=== PATIENT | female | born 1995 | race Caucasian/White ===

== ENCOUNTER 2016-04-23 14:27 | Inpatient (IN) | payer OTHER ==
[~2016-04-23 14:27] MED LIST: AUGMENTIN 500-1 EAC2 PO; ELIQUIS5 M1 PO; HYDROCODON-ACE1 EA16 PO; IMURAN50 M1 PO; JANUVIA100 M1 PO; NOVOLOG100 UNITS/; PREDNISONE10 M1 PO; TRESIBA FL100 UNIT/1 SC
[2016-04-23] MEDS ORDERED: MULTIVITAMINS1 EAC6 PO (14:51)
[2016-04-23 17:02] LABS: BASO % 0.1 % (0-2); EOS % 0.7 % (0-7); EOSINOPHIL ABSOLUTE COUNT 0.1 tho/cmm (0.0-0.7); HCT-HEMATOCRIT 31.8 % (34.0-49.0); HGB-HEMOGLOBIN 10.6 gm/dl (12.0-15.5); IMMATURE GRANULOCYTES ABSOLUTE 0.02 tho/cmm (0-0.03); IMMATURE GRANULOCYTES PERCENT 0.2 % (0-0.3); LYMPH % 21.9 % (20-45); LYMPH ABSOLUTE COUNT 2.1 tho/cmm (0.8-4.5); MCH (MEAN CORPUSCULAR HGB) 29.2 pg (28.0-32.0); MCHC MEAN CORPUSCULAR HGB CONC 33.3 % (32.0-36.0); MCV (MEAN CELL VOLUME) 87.6 fl (82.0-96.0); MEAN PLATELET VOLUME 8.7 cmc (9.4-12.4); MONO % 7.6 % (0-12); MONOCYTE ABSOLUTE COUNT 0.7 tho/cmm (0.0-1.2); NEUTROPHIL ABSOLUTE COUNT 6.8 tho/cmm (1.6-8.0); NEUTROPHIL-AUTOMATED 6.8 tho/cmm (1.6-8.0); NEUTROPHILS % 69.5 % (40-80); PLATELET COUNT 374 tho/cmm (150-450); RED BLOOD COUNT 3.63 mil/cmm (4.00-5.20); RED CELL DISTRIBUTION WIDTH 15.3 % (12.4-16.4); WHITE BLOOD COUNT 9.7 tho/cmm (4.0-10.0)
[2016-04-23 17:21] LABS: ALB/GLOB RATIO 0.7 (0.8-2.0); ALBUMIN 3.2 g/dl (3.5-5.0); ALKALINE PHOSPHATASE 49 U/L (33-138); ALT/SGPT 17 U/L (12-78); ANION GAP 13 mmol/L (0-20); AST/SGOT 10 U/L (10-40); BILIRUBIN,DIRECT <0.1 mg/dl (0.0-0.3); BILIRUBIN,INDIRECT 0.2 mg/dL (0.0-1.0); BILIRUBIN,TOTAL 0.3 mg/dl (0-1.5); BLOOD UREA NITROGEN 9 mg/dl (6-24); CALCIUM 8.7 mg/dl (8.5-10.5); CARBON DIOXIDE-VENOUS 26 mmol/L (22-32); CHLORIDE 107 mmol/l (96-110); CREATININE 0.54 mg/dl (0.50-1.10); GLUCOSE 105 mg/dL (70-110); POTASSIUM 3.5 mmol/L (3.7-5.1); SODIUM 142 mmol/L (135-145); eGFR VALUE FOR BLACK >60 mL/Min
[2016-04-23 17:24] LABS: ESR-ERYTHROCYTE SED RATE 71 mm/hr (0-20)
[2016-04-24 17:09] LABS: BODY FLUID APPEARANCE CLOUDY (CLEAR); BODY FLUID COLOR RED (COLORLESS); BODY FLUID RBC COUNT 410000 cmm (0); BODY FLUID TYPE RLQ ABSCESS; BODY FLUID VOLUME 17 ml; BODY FLUID WBC COUNT 353980 cmm
[2016-04-24 17:46] LABS: BODY FLUID MACROPHAGES 1 %; BODY FLUID NEUTROPHILS 99 %
[2016-04-25] MEDS ORDERED: LEVAQUIN750 M1 PO (16:15)
[2016-04-25] MEDS ORDERED: FLAGYL500 M1 PO (16:15)
[2016-06-30] MEDS ORDERED: REMICADE100 MG IV (17:05)
[2016-06-30] MEDS ORDERED: NOVOLOG100 UNITS/ SC (17:05)
== END 2016-04-25 17:00 | DRG 386 ==
LOC: 5WF 14:27
PROVIDERS: Hospitalist; Radiology Diagnostic Radiology; ADMIT Family Medicine
PROC: 0W9F30Z Drainage of Abdominal Wall with Drainage Device, Percutaneous Approach (ICD-10-PCS; principal; 2016-04-24)
DX: K50.914 Crohn's disease, unspecified, with abscess (principal); E44.1 Mild protein-calorie malnutrition; D68.51 Activated protein C resistance; Z68.1 Body mass index [BMI] 19.9 or less, adult; E11.9 Type 2 diabetes mellitus without complications; Z86.718 Personal history of other venous thrombosis and embolism; Z79.01 Long term (current) use of anticoagulants; Z79.4 Long term (current) use of insulin
CPT/HCPCS: C1751; C1769; J1815; J2250; J2543; J3010; J7500; Q9967

== ENCOUNTER 2016-06-04 22:27 | Inpatient (IN) | payer OTHER ==
[~2016-06-04 22:27] MED LIST changes: +FLAGYL500 M1 PO; +LEVAQUIN750 M1 PO; +MULTIVITAMINS1 EAC6 PO
[2016-06-05] LABS: ANION GAP 10 mmol/L (0-20); BLOOD UREA NITROGEN 11 mg/dl (6-24); CALCIUM 8.9 mg/dl (8.5-10.5); CARBON DIOXIDE-VENOUS 26 mmol/L (22-32); CHLORIDE 108 mmol/l (96-110); CREATININE 0.61 mg/dl (0.50-1.10); GLUCOSE 150 mg/dL (70-110); POTASSIUM 3.7 mmol/L (3.7-5.1); SODIUM 140 mmol/L (135-145); eGFR VALUE FOR BLACK >90 mL/Min
[2016-06-05 00:20] LABS: PREGNANCY-SERUM NEGATIVE (NEGATIVE)
[2016-06-05 01:28] LABS: BASO % 0.4 % (0-2); EOS % 2.2 % (0-7); EOSINOPHIL ABSOLUTE COUNT 0.2 tho/cmm (0.0-0.7); HCT-HEMATOCRIT 45.5 % (34.0-49.0); HGB-HEMOGLOBIN 13.6 gm/dl (12.0-15.5); IMMATURE GRANULOCYTES ABSOLUTE 0.02 tho/cmm (0-0.03); IMMATURE GRANULOCYTES PERCENT 0.2 % (0-0.3); LYMPH % 25.4 % (20-45); LYMPH ABSOLUTE COUNT 2.1 tho/cmm (0.8-4.5); MCH (MEAN CORPUSCULAR HGB) 26.7 pg (28.0-32.0); MCHC MEAN CORPUSCULAR HGB CONC 29.9 % (32.0-36.0); MCV (MEAN CELL VOLUME) 89.4 fl (82.0-96.0); MEAN PLATELET VOLUME 9.5 cmc (9.4-12.4); MONO % 6.5 % (0-12); MONOCYTE ABSOLUTE COUNT 0.5 tho/cmm (0.0-1.2); NEUTROPHIL ABSOLUTE COUNT 5.3 tho/cmm (1.6-8.0); NEUTROPHIL-AUTOMATED 5.3 tho/cmm (1.6-8.0); NEUTROPHILS % 65.3 % (40-80); PLATELET COUNT 264 tho/cmm (150-450); RED BLOOD COUNT 5.09 mil/cmm (4.00-5.20); RED CELL DISTRIBUTION WIDTH 13.9 % (12.4-16.4); WHITE BLOOD COUNT 8.1 tho/cmm (4.0-10.0)
[2016-06-05 05:25] LABS: BASO % 0.2 % (0-2); EOS % 2.8 % (0-7); EOSINOPHIL ABSOLUTE COUNT 0.2 tho/cmm (0.0-0.7); HCT-HEMATOCRIT 33.7 % (34.0-49.0); HGB-HEMOGLOBIN 11.4 gm/dl (12.0-15.5); IMMATURE GRANULOCYTES ABSOLUTE 0.01 tho/cmm (0-0.03); IMMATURE GRANULOCYTES PERCENT 0.2 % (0-0.3); LYMPH % 34.3 % (20-45); LYMPH ABSOLUTE COUNT 2.2 tho/cmm (0.8-4.5); MCV (MEAN CELL VOLUME) 88.9 fl (82.0-96.0); MEAN PLATELET VOLUME 9.3 cmc (9.4-12.4); MONO % 9.3 % (0-12); MONOCYTE ABSOLUTE COUNT 0.6 tho/cmm (0.0-1.2); NEUTROPHIL ABSOLUTE COUNT 3.5 tho/cmm (1.6-8.0); NEUTROPHIL-AUTOMATED 3.5 tho/cmm (1.6-8.0); NEUTROPHILS % 53.2 % (40-80); PLATELET COUNT 287 tho/cmm (150-450); RED BLOOD COUNT 3.79 mil/cmm (4.00-5.20); WHITE BLOOD COUNT 6.5 tho/cmm (4.0-10.0)
[2016-06-05 05:38] LABS: INR 1.2 INR (0.9-1.1); PROTHROMBIN TIME 13.4 SECONDS (9.0-13.6)
[2016-06-05 05:46] LABS: ANION GAP 10 mmol/L (0-20); BLOOD UREA NITROGEN 7 mg/dl (6-24); C-REACTIVE PROTEIN 0.3 mg/dl (0-0.9); CALCIUM 8.2 mg/dl (8.5-10.5); CARBON DIOXIDE-VENOUS 23 mmol/L (22-32); CHLORIDE 112 mmol/l (96-110); GLUCOSE 199 mg/dL (70-110); POTASSIUM 3.9 mmol/L (3.7-5.1); SODIUM 141 mmol/L (135-145); eGFR VALUE FOR BLACK >90 mL/Min
[2016-06-05 05:55] LABS: MCH (MEAN CORPUSCULAR HGB) 30.1 pg (28.0-32.0); MCHC MEAN CORPUSCULAR HGB CONC 33.8 % (32.0-36.0)
[2016-06-05 06:03] LABS: ESR-ERYTHROCYTE SED RATE 30 mm/hr (0-20)
[2016-06-05 06:15] LABS: PROCALCITONIN <0.05 ng/ml (0.05-0.09)
[2016-06-30] MEDS ORDERED: NOVOLOG100 UNITS/ SC (17:05)
[2016-06-30] MEDS ORDERED: REMICADE100 MG IV (17:05)
== END 2016-06-05 15:35 | DRG 920 ==
LOC: EDMED 22:27 → EMR2 06-05 03:28 → 5WE 06-05 03:57
PROVIDERS: Emergency Medicine; Registered Nurse; ADMIT Internal Medicine
PROC: 0W9F3ZZ Drainage of Abdominal Wall, Percutaneous Approach (ICD-10-PCS; principal; 2016-06-05)
DX: T81.31XA Disruption of external operation (surgical) wound, not elsewhere classified, initial encounter (principal); K50.914 Crohn's disease, unspecified, with abscess; K63.2 Fistula of intestine; E11.65 Type 2 diabetes mellitus with hyperglycemia; Z86.718 Personal history of other venous thrombosis and embolism; Z79.01 Long term (current) use of anticoagulants
CPT/HCPCS: J1745; J1815; J2543; J3370; J7030; J7050; J7500; Q9967

== ENCOUNTER 2016-07-02 07:09 | Inpatient (IN) | payer OTHER ==
[~2016-07-02 07:09] MED LIST changes: +NOVOLOG100 UNITS/ SC; +REMICADE100 MG IV
[2016-07-02 08:52] LABS: ANION GAP 11 mmol/L (0-20); BLOOD UREA NITROGEN 7 mg/dl (6-24); CALCIUM 9.1 mg/dl (8.5-10.5); CARBON DIOXIDE-VENOUS 24 mmol/L (22-32); CHLORIDE 114 mmol/l (96-110); CREATININE 0.64 mg/dl (0.50-1.10); GLUCOSE 105 mg/dL (70-110); SODIUM 145 mmol/L (135-145); eGFR VALUE FOR BLACK >90 mL/Min
[2016-07-03 06:01] LABS: HCT-HEMATOCRIT 31.7 % (34.0-49.0); HGB-HEMOGLOBIN 11.1 gm/dl (12.0-15.5); MCV (MEAN CELL VOLUME) 87.6 fl (82.0-96.0); RED CELL DISTRIBUTION WIDTH 13.7 % (12.4-16.4)
[2016-07-04] MEDS ORDERED: NORCO 5-325 TA1 EACH PO (11:42)
== END 2016-07-04 17:00 | DRG 357 ==
LOC: SHSB 07:09 → ORW 09:30 → PACU 12:48 → 5WE 13:43
PROVIDERS: Anesthesiology; ADMIT Surgery
PROC: 0DBB4ZX Excision of Ileum, Percutaneous Endoscopic Approach, Diagnostic (ICD-10-PCS; principal; 2016-07-02)
PROC: 07BB4ZX Excision of Mesenteric Lymphatic, Percutaneous Endoscopic Approach, Diagnostic (ICD-10-PCS; principal; 2016-07-02)
PROC: 0DB Gastrointestinal System, Excision (ICD-10-PCS; principal; 2016-07-02)
PROC: 3E0F7GC Introduction of Other Therapeutic Substance into Respiratory Tract, Via Natural or Artificial Opening (ICD-10-PCS; principal; 2016-07-02)
DX: K63.2 Fistula of intestine (principal); D68.51 Activated protein C resistance; K50.90 Crohn's disease, unspecified, without complications; E11.9 Type 2 diabetes mellitus without complications; Z79.01 Long term (current) use of anticoagulants; Z79.4 Long term (current) use of insulin
CPT/HCPCS: J1170; J1335; J1885; J2270; J2405; J7030; J7500